=== PATIENT | female | born 1995 ===

== ENCOUNTER 2021-03-30 11:59 | Outpatient (CLI) | payer OTHER ==
[2021-03-30] MEDS ORDERED: LACTATED RINGERS 500 ML IV ONE (13:14)
[2021-03-30] MEDS ORDERED: LACTATED RINGERS 1,000 ML IV SCH (13:15)
[2021-03-30 14:26] LABS: Bilirubin,Urine NEG (Negative); Blood,Urine NEG (Negative); Color,Urine Yellow (Yellow); Mucus,Urine 1+ /HPF; Protein,Urine <15 mg/dL mg/dL (Negative); Urobilinogen,Urine < 2.0 mg/dL (<2.0)
--- NOTE | 2021-03-30 14:33 | Ultrasound Report ---
Biophysical profile Ultrasound HISTORY: labor. TECHNIQUE: Grayscale and color imaging performed. COMPARISON: None FINDINGS: The fetus received a score of 2 out of 2 for movement, posture/tone, and DIXIE. Fetus receive d a score of 0 out of 2 for breathing movement. Heart rate during the exam was 145 bpm. IMPRESSION: BPP score is 6 out of 8 as above. Signer Name: Andrei Parada MD Signed: 03/30/2021 2:28 PM Workstation Name: [id number]
--- NOTE | 2021-03-30 15:11 | Event Note ---
Date: 03/30/21 Nurse notified me of pt 31+ weeks with c/o LOF. ROM plus neg, FFN neg and BPP 8/10 and -2 for no breathing which is acceptable for this gestational age. Pt given IV fluid bolus. Urine neg. Pt to follow up in clinic in 1-2 days for repeat evaluation. Recommendation for Kick count instruction given and nurse to notify patient of all these instructions.
[2021-03-30 15:21] VITALS: BP 116/56
== END 2021-03-30 15:28 | disposition home or self-care (01) ==
LOC: TRG 11:59 → APU 12:00 → TRG 15:28
PROVIDERS: ATTEND Obstetrics & Gynecology
DX: O42.913 Preterm premature rupture of membranes, unspecified as to length of time between rupture and onset of labor, third trimester (principal); Z3A.31 31 weeks gestation of pregnancy
CPT/HCPCS: 36415; 59025; 76819; 81001; 82731; 84112; 87086; J7120; 96360; J3490

== ENCOUNTER 2021-05-28 07:07 | Inpatient (IN) | payer SELFPAY ==
[2021-05-28] MEDS: LACTATED RINGERS 1,000 ML IV SCH ×2 (10:50→15:00)
[2021-05-28] MEDS ORDERED: BICITRA ORAL LIQD 30ML PO SCH (10:56)
[2021-05-28] MEDS ORDERED: FAMOTIDINE 20 MG/2 ML INJ IV SCH (10:56)
[2021-05-28] MEDS ORDERED: METOCLOPRAMIDE 10 MG/2 ML INJ IV SCH (10:56)
[2021-05-28] MEDS ORDERED: OXYTOCIN DRIP 30 UNITS/500 ML BAG IV SCH ×2 (11:00→16:30)
[2021-05-28 11:09] LABS: Basophils % (Auto) 0.1 % (0.0-1.8); Eosinophils % (Auto) 0.3 % (0.0-4.3); Hematocrit 38.7 % (30.3-42.9); Hemoglobin 12.6 gm/dl (10.1-14.3); Lymphocytes # (Auto) 1.7 K/mm3 (1.2-5.4); Lymphocytes % (Auto) 22.1 % (13.4-35.0); Mean Corpuscular HGB Conc 33 % (30-34); Mean Corpuscular Volume 86 fl (79-97); Monocytes # (Auto) 0.4 K/mm3 (0.0-0.8); Monocytes % (Auto) 5.7 % (0.0-7.3)
[2021-05-28 11:10] LABS: Platelet Count 148 K/mm3 (140-440)
--- NOTE | 2021-05-28 11:13 | Anesthesia Day of Surgery ---
Anesthesia Day of Surgery - Day of Surgery Patient Examined: Yes Patient H&P Reviewed: Yes Patient is NPO: Yes
--- NOTE | 2021-05-28 11:15 | Anesthesia Consultation ---
Anesthesia Consult and Med Hx Date of service: 05/28/21 - Airway Anesthetic Teeth Evaluation: Good ROM Head & Neck: Adequate Mental/Hyoid Distance: Adequate Mallampati Class: Class II Intubation Access Assessment: Probably Good - Pulmonary Exam CTA: Yes - Cardiac Exam Cardiac Exam: RRR - Pre-Operative Health Status ASA Pre-Surgery Classification: ASA2 Proposed Anesthetic Plan: Epidural, Spinal - Pre-Anesthesia Comment Pre-Anesthesia Comments: csection - Pulmonary Hx Smoking: No Hx Asthma: No Hx Respiratory Symptoms: No SOB: No COPD: No Home Oxygen Therapy: No Hx Pneumonia: No Hx Sleep Apnea: No - Cardiovascular System Hx Hypertension: No Hx Coronary Artery Disease: No Hx Heart Attack/AMI: No Hx Angina: No Hx Percutaneous Transluminal Coronary Angioplasty (PTCA): No Hx Cardia Arrhythmia: No Hx Pacemaker: No Hx Internal Defibrillator: No Hx Valvular Heart Disease: No Hx Heart Murmur: No Hx Peripheral Vascular Disease: No - Central Nervous System Hx Neuromuscular Disorder: No Hx Seizures: No CVA: No Hx Back Pain: No Hx Psychiatric Problems: No - Gastrointestinal Hx Ulcer: No Hx Gastroesophageal Reflux Disease: No - Endocrine Hx Renal Disease: No Hx End Stage Renal Disease: No Hx Cirrhosis: No Hx Liver Disease: No Hx Insulin Dependent Diabetes: No Hx Non-Insulin Dependent Diabetes: No Hx Thyroid Disease: No Hx Hypothyroidism: No Hx Hyperthyroidism: No - Hematic Hx Anemia: No Hx Sickle Cell Disease: No - Other Systems Hx Alcohol Use: No Hx Substance Use: No Hx Cancer: No Hx Obesity: No
[2021-05-28] MEDS ORDERED: BUPIVACAINE /DEX-WATER 0.75% (2 ML) AMPULE INFILTRATI ONE (11:27)
[2021-05-28] MEDS ORDERED: ONDANSETRON 4 MG/2 ML INJ ONE (11:28)
[2021-05-28] MEDS ORDERED: ceFAZolin/Water 2 GM/20 ML 2 GM/20 ML SYRINGE IV ONE (12:36)
--- NOTE | 2021-05-28 12:48 | History and Physical Report ---
History of Present Illness Date of examination: 05/28/21 Date of admission: 05/28/21 11:17 Chief complaint: scheduled repeat section History of present illness: at 39.0wks by LMP c.w [facility]/S. care at [facility] and covered by [employer]. Pt admits to , Denies LOF, VB, contraction s or headache. Pt has no complaints Past History Past Medical History: no pertinent history Past Surgical History: section (x1) Social history: no significant social history - Obstetrical History Expected Date of Delivery: 06/04/21 Actual Gestation: 39 Week(s) 0 Day(s) : 2 Hx # Term Pregnancies: 1 Number of Living Children: 1 Medications and Allergies Allergies Allergy/AdvReac Type Severity Reaction Status Date / Time No Known Allergies Allergy Verified 03/30/21 13:05 Home Medications Medication Instructions Recorded Confirmed Last Taken Type No Known Home Medications [No 05/28/21 05/28/21 Unknown History Reported Home Medications] Active Meds: Active Medications Citric Acid/Sodium Citrate (Bicitra Oral Liqd 30ml) 30 ml PO ONCE DENISHA Last Admin: 05/28/21 11:42 Dose: 30 ml Famotidine (Famotidine 20 Mg/2 Ml Inj) 20 mg IV ONCE DENISHA Last Admin: 05/28/21 11:42 Dose: 20 mg Lactated Ringer's (Lactated Ringers) 1,000 mls @ 2,250 mls/hr IV PREOP DENISHA Stop: 05/29/21 12:27 Last Admin: 05/28/21 10:50 Dose: 2,250 mls/hr Oxytocin/Sodium Chloride (Pitocin/Ns 30 Unit/500ml) 30 units in 500 mls @ 0 mls/hr IV TITR DENISHA; Protocol Metoclopramide HCl (Metoclopramide 10 Mg/2 Ml Inj) 10 mg IV ONCE DENISHA Last Admin: 05/28/21 11:42 Dose: 10 mg Review of Systems All systems: negative (no complaints) - Vital Signs Vital signs: Vital Signs Temp 98.2 F 05/28/21 10:11 Temp Pulse Resp BP Pulse Ox 98.2 F 65 97 05/28/21 10:11 05/28/21 12:10 05/28/21 12:10 - Physical Exam Breasts: Positive: deferred Cardiovascular: Regular rate Lungs: Positive: Normal air movement Abdomen: Positive: soft Genitourinary (Female): Positive: normal external genitalia Vagina: Positive: normal moisture Uterus: Positive: enlarged (non-tender, gravid) - Obstetrical FHR: category 1 Uterine Contraction Monitor Mode: External Uterine Contraction Pattern: Absent Results Result Diagrams: 05/28/21 10:30 Abnormal lab results 05/28/21 Range/Units 10:30 Seg Neutrophils % 71.8 H (40.0-70.0) % All other labs normal. Assessment and Plan Term IUP here for scheduled repeat section 1. Admit to labor and delivery 2. Consents already obtained for repeat section 3. NICU and anesthesiology already notified 4. Geophysical Observer used to convey plan of care; all questions encouraged and answered
[2021-05-28] MEDS ORDERED: LACTATED RINGERS 1,000 ML ONE (13:14)
[2021-05-28] MEDS ORDERED: BUPIVACAINE/PF (0.25%) 2.5 MG/ML 30 ML VIAL INFILTRATI ONE ×2 (13:27)
--- NOTE | 2021-05-28 14:57 | Post Anesthesia Evaluation ---
- Post Anesthesia Evaluation Patient Participated: Yes Airway Patent: Yes Stable Respiratory Function: Yes Nausea/Vomiting: No Temp > 96.8F: Yes Pain Manageable: Yes Adequeate Hydration: Yes Anesthesia Complications: No Block Receding Appropriately: Yes Patient on Ventilator: No
--- NOTE | 2021-05-28 15:04 | Progress Note ---
Spinal Anesthesia Block - Spinal Anesthesia Block Start Time: 12:29 Stop Time: 12:36 Performed by:: ZOHAIB ROMO Procedure: atient is requesting epidural for labor pain. H&P and labs reviewed. Procedure explained, questions answered, consent obtained. Patient placed in sitting position with monitors applied. Timeout performed immediately before start of procedure. Prep/drape in usual sterile fashion. Skin localized 3 mL 1% lidocaine at L[3]-L[4] interspace. 17-gauge Terapeaktead epidural needle advanced to LATRICIA with saline at [7] cm. No blood/CSF noted via epidural needle. 25g spinal needle advanced into intrathecal space until clear, free flowing CSF noted. 1.4cc 0.75% hyperbaric bupivacaine injected into intrathecal space. Spinal needle removed and epidural catheter advanced to [10] cm. Negative aspiration for blood and CSF via catheter. Sterile dressing applied followed by tape reinforcement. Patient tolerated procedure well. No immediate complications noted.
--- NOTE | 2021-05-28 15:11 | Progress Note ---
Regional Anesthesia Block - Regional Anesthesia Block Start Time: 14:10 Stop Time: 14:15 Performed By:: ZOHAIB ROMO Procedure: Patient consented for TAP block for post surgical pain management. Patient identified, monitors placed, and time out performed. TAP identified bilaterally via ultrasound. Skin prepped bilaterally with [chlorhexidine] and [22g stimuplex] needle advanced to the TAP. [Marcaine 0.25% 30ml] injected under ultrasound guidance on the [left] side. [Marcaine 0.25% 30ml] injected under ultrasound guidance on the [right] side. Negative aspiration every 5mL, No change in heart rate or rhythm. Patient tolerated the procedure well. No apparent complications seen.
--- NOTE | 2021-05-28 15:46 | Procedure Note ---
OB Delivery Note - Delivery Date of Delivery: 05/28/21 Surgeon: RAIZA WOLFE Estimated blood loss: other (651cc by QBL per nurse) - Section Preop diagnosis: repeat Postop diagnosis: same section procedure: repeat low transverse Disposition: floor Complications: none Narrative: Date: 05/28/21 Surgeon: Raiza Wolfe MD Preop Dx: IUP at 39.0wks, previous section x1; Postop Dx: same and breech presentation Procedure : Repeat Low Transverse Anesthesia: combined spinal Intake: 1800cc Output: 500cc EBL: 651cc by QBL After the risks, benefits and alternatives of procedure discussed, patient signed consents and was taken to the operating room. Pt was given combined spinal anesthesia. After same was adequate, patient was prepped and draped in the usual sterile fashion. Acevedo catheter in place and draining clear urine. Pt was given prophylactic antibiotic per protocol and time out was done Pfannenstiel skin incision was made and taken sharply to the fascia and the incision extended using electrocautery. Superior edge of the fascia was grasped with morgan clamps and the rectus muscle using blunt dissection and also using electrocautery. Lower portion of the fascia also using electrocautery. Rectus muscle in the midline and Peritoneal cavity entered sharply and extended with good visualization of the bladder. Efraín retractor placed. The bladder flap was created sharply using metzenbaum scissors and adhesions to lower uterine segment . Lower uterine segment then entered transversely and amniotic sac entered using allys clamps. Uterine incision extended using bandage scissors. Infant noted to be complete breech and was delivered in usual fashion, bulb suctioned, cord clamped and baby handed to waiting pediatricians. Placenta then delivered manually and complete and uterine cavity cleared of all clots and debri. The uterus was not exteriorized and closed in 2 layers using 0-monocryl suture in a running locked fashion and then an additional layer of imbrication suture. Surgicel powder placed and Excellent hemostasis noted. The gutters were cleared of clots and debri and anterior peritoneum closed with scar and rectus muscle reapproximated using 0-vicryl suture in a running fashion. Rectus fascia closed with 0-vicryl suture from left to right in a running fashion and subcutaneous tissue copiously irrigated with normal saline and re-approximated using 3-0 vicryl suture. Excellent hemostasis remains. The skin was closed with 4-0 monocryl suture and steristrips placed with pressure dressing. Sponge, lap, instrument and needle counts x2 were normal. Patient tolerated the procedure well and was taken to recovery room stable. Findings: Viable male infant, APGARS 7/9 and weight 3420g. Normal uterus, tubes and ovaries. - Infant A at 1 minute: 7 at 5 minutes: 9 Infant Gender: Male (clear fluid, complete breech; wt 3420g)
[2021-05-28] MEDS ORDERED: IBUPROFEN 600 MG TAB PO PRN (16:07)
[2021-05-28] MEDS ORDERED: HYDROCORTISONE 25 MG RECTAL SUPP PR PRN (16:07)
[2021-05-28] MEDS ORDERED: LANOLIN/ZINC/DIMETHICONE (LANSINOH) 7 GM TP PRN (16:07)
[2021-05-28] MEDS ORDERED: MAGNESIUM HYDROXIDE (MOM) ORAL LIQD UDC PO PRN (16:07)
[2021-05-28] MEDS ORDERED: NALOXONE 0.4 MG/1 ML INJ IV PRN (16:30)
[2021-05-28] MEDS ORDERED: ACETAMINOPHEN 325 MG TAB PO PRN (16:30)
[2021-05-28] MEDS ORDERED: SIMETHICONE 80 MG CHEW TAB PO PRN (16:30)
[2021-05-28] MEDS ORDERED: ONDANSETRON 4 MG/2 ML INJ IV PRN (16:30)
[2021-05-28] MEDS ORDERED: WITCH HAZEL/ GLYCERIN PAD TP PRN (16:30)
[2021-05-28] MEDS ORDERED: PROMETHAZINE 25 MG RECT SUPP PR PRN (16:30)
[2021-05-28] MEDS: MORPHINE 4 MG/1 ML INJ IV PRN ×2 (16:34→21:59)
[2021-05-28] MEDS ORDERED: SENNOSIDES 8.6 MG TAB PO PRN (22:00)
[2021-05-29] MEDS: oxyCODONE /ACETAMINOPHEN 5-325MG TAB PO PRN ×2 (05:43→12:22)
[2021-05-29 06:00] LABS: Hematocrit 34.5 % (30.3-42.9); Hemoglobin 11.3 gm/dl (10.1-14.3)
[2021-05-29] MEDS ORDERED: ceFAZolin/NS 1 GM/50 ML 0 GM/0 ML BAG IV ONE (12:01)
[2021-05-29] MEDS: FERROUS SULFATE 325 MG TAB PO SCH (12:18)
[2021-05-29] MEDS: PRENATAL VIT27-FE FUMARATE-FOLIC ACID VIT TAB PO SCH (12:19)
--- NOTE | 2021-05-29 14:47 | Progress Note ---
Assessment and Plan POD#1 C/S and breech at delivery; mild fundal tenderness 1. Routine post op care 2. Remove dressing in am 3. Augmentin for early signs of endometritis All questions encouraged and answered Subjective Date of service: 05/29/21 Principal diagnosis: POD#1 repeat C/S Interval history: pt has voided without difficulty; passed flatus; breast feeding; pain controlled with meds. Objective - Constitutional Vitals: Vital Signs - 12hr 05/29/21 05/29/21 05/29/21 04:00 05:43 06:43 Temperature 98.7 F Pulse Rate 77 Respiratory 16 18 18 Rate Blood Pressure Blood Pressure 112/74 [Left] O2 Sat by Pulse Oximetry O2 Sat by Pulse Oximetry [ Throughout] 05/29/21 05/29/21 05/29/21 07:20 08:00 12:16 Temperature 97.9 F 97.7 F Pulse Rate 64 69 Respiratory 16 20 Rate Blood Pressure 108/63 108/69 Blood Pressure [Left] O2 Sat by Pulse 95 92 Oximetry O2 Sat by Pulse 98 Oximetry [ Throughout] General appearance: Present: no acute distress - Neck Neck: normal ROM - Respiratory Respiratory effort: normal - Breasts Breasts: deferred - Cardiovascular Rhythm: regular Extremities: No edema - Gastrointestinal General gastrointestinal: Present: soft - Genitourinary Female genitourinary: other (fundus firm, mild tenderness 1cm below umbilicus; lochia scant) - Labs CBC & Chem 7: 05/29/21 05:21 Medications & Allergies - Medications Allergies/Adverse Reactions: Allergies No Known Allergies Allergy (Verified 03/30/21 13:05) Home Medications: Home Medications Medication Instructions Recorded Confirmed Last Taken Type Ibuprofen [Motrin] 800 mg PO Q8HR PRN 21 Days #40 05/28/21 Unknown Rx tablet oxyCODONE /ACETAMINOPHEN [Percocet 1 tab PO Q4HR PRN 21 Days #30 tab 05/28/21 Unknown Rx 5/325] Active Medications: Generic Name Dose Route Start Last Admin Trade Name Freq PRN Reason Stop Dose Admin Acetaminophen 650 mg 05/28/21 16:30 Acetaminophen 325 Mg Tab PO Q4H PRN Fever >100.5/ESPINOZA Ferrous Sulfate 325 mg 05/29/21 10:00 05/29/21 12:18 Ferrous Sulfate 325 Mg Tab PO 325 mg QDAY DENISHA Administration Hydrocortisone Acetate 25 mg 05/28/21 16:07 Hydrocortisone 25 Mg Rectal Supp CO BID PRN Hemorrhoids Oxytocin/Sodium Chloride 30 units in 500 mls @ 0 mls/hr 05/28/21 11:00 Pitocin/Ns 30 Unit/500ml IV TITR [facility] Protocol As Directed Oxytocin/Sodium Chloride 30 units in 500 mls @ 40 mls/hr 05/28/21 16:30 Pitocin/Ns 30 Unit/500ml IV TITR [facility] Protocol Ibuprofen 600 mg 05/28/21 16:07 Ibuprofen 600 Mg Tab PO Q6H PRN Pain, Mild (1-3) Ibuprofen 800 mg 05/28/21 16:07 Ibuprofen 800 Mg Tab PO Q6H PRN Pain, Moderate (4-6) Magnesium Hydroxide 30 ml 05/28/21 16:07 Magnesium Hydroxide (Mom) Oral Liqd Udc PO QHS PRN Constip Unrelieved By Senna Morphine Sulfate 4 mg 05/28/21 16:30 05/28/21 21:59 Morphine 4 Mg/1 Ml Inj IV 4 mg Q4H PRN Administration Pain , Severe (7-10) Multi-Ingredient Ointment 1 applic 05/28/21 16:07 Lanolin/Zinc/Dimethicone (Lansinoh) 7 Gm TP PRN PRN dryness/cracking Multivitamins/Iron/Calcium 1 each 05/29/21 10:00 05/29/21 12:19 Ati24-Pw Fumarate-Folic Acid Vit Tab PO 1 each QDAY DENISHA Administration Naloxone HCl 0.1 mg 05/28/21 16:30 Naloxone 0.4 Mg/1 Ml Inj IV Q2MIN PRN Res Rate </= 8 or 02 SAT < 92% Ondansetron HCl 4 mg 05/28/21 16:30 Ondansetron 4 Mg/2 Ml Inj IV Q8H PRN Nausea And Vomiting Oxycodone/Acetaminophen 2 tab 05/28/21 16:30 05/29/21 12:22 Oxycodone /Acetaminophen 5-325mg Tab PO 2 tab Q4H PRN Administration Pain , Severe (7-10) Promethazine HCl 25 mg 05/28/21 16:30 Promethazine 25 Mg Rect Supp CO Q6H PRN N/V IF NPO AND NO IV ACCESS Senna 17.2 mg 05/28/21 22:00 Sennosides 8.6 Mg Tab PO QHS PRN Constipation Simethicone 80 mg 05/28/21 16:30 Simethicone 80 Mg Chew Tab PO Q6H PRN Gas pain Sodium Chloride 10 ml 05/28/21 16:30 Sodium Chloride 0.9% 10 Ml Flush Syringe IV PRN PRN flush Witch Lisa/Glycerin 1 each 05/28/21 16:30 Witch Lisa/ Glycerin Pad TP PRN PRN Hemorrhoids/cleansing/soothing
[2021-05-29] MEDS: IBUPROFEN 800 MG TAB PO PRN (16:08)
[2021-05-29] MEDS: AMOXICILLIN/K CLAV 875/125MG TAB PO SCH (16:21)
[2021-05-30] MEDS: IBUPROFEN 800 MG TAB PO PRN ×2 (03:02→09:56)
[2021-05-30] MEDS: AMOXICILLIN/K CLAV 875/125MG TAB PO SCH ×2 (04:52→11:21)
[2021-05-30] MEDS: FERROUS SULFATE 325 MG TAB PO SCH (09:56)
[2021-05-30] MEDS: PRENATAL VIT27-FE FUMARATE-FOLIC ACID VIT TAB PO SCH (09:56)
--- NOTE | 2021-05-30 12:27 | Progress Note ---
Assessment and Plan A: /postop day 2 S/P repeat LTCS. P: Discharge patient home today. Discussed with patient /postop discharge instructions and warning signs. Discussed with patient care of incision and activity restrictions. Advised patient to continue taking her vitamin and iron supplement at home. Advised patient to avoid int ercourse, lifting, housework, driving, and tub baths (patient may take showers). Advised patient to follow up at [facility] clinic in 1 week. Patient voiced understanding of all instructions. Subjective - Subjective Date of service: 05/30/21 Principal diagnosis: POD#2 repeat C/S Interval history: Patient requests discharge home today. Doing well; no complaints. Patient reports: appetite normal, voiding normally, pain well controlled, flatu s, ambulating normally, no dizzy ambulation, no nauseated : doing well Objective - Vital Signs Latest vital signs: Vital Signs Temp Pulse Resp BP BP Pulse Ox Pulse Ox 05/30/21 08:40 98 05/30/21 07:34 97.8 F 68 18 111/68 94 05/30/21 07:33 96 05/30/21 03:02 18 05/30/21 00:59 98.4 F 76 20 106/66 96 05/29/21 20:22 98 05/29/21 20:19 18 05/29/21 15:09 98.6 F 67 18 104/64 98 Intake and Output 05/29/21 05/30/21 05/30/21 23:59 07:59 15:59 Intake Total 240 600 240 Balance 240 600 240 Intake: Oral 240 240 240 Intake, Free Water 360 Other: Total, Intake Amount 240 240 240 # Voids Void 1 1 - Exam Cardiovascular: Present: Regular rate, No murmurs Lungs: Present: Clear to auscultation Abdomen: Present: normal appearance, soft, normal bowel sounds. Absent: distention, tenderness, guarding, rigidity Uterus: Present: normal, firm, fundal height below umbilicus. Absent: bogginess, tenderness Extremities: Present: tenderness. Absent: edema Incision: Present: dry, intact
--- NOTE | 2021-05-30 12:30 | Discharge Summary ---
Providers - Providers Date of Admission: 05/28/21 11:17 Date of discharge: 05/30/21 Attending physician: MELBA WOLFE Primary care physician: MELBA WOLFE Hospitalization Reason for admission: section Delivery: Procedure: repeat low transverse Incision: normal, dry, intact Other procedures: none complications: none Discharge diagnosis: IUP at term delivered [place] baby: male Pertinent studies: Labs Hospital course: Stable hospital course Condition at discharge: Good Disposition: 01 HOME / SELF CARE / HOMELESS - Discharge Diagnoses (1) Term delivered Status: Acute Plan - Discharge Medications Prescriptions: Ibuprofen [Motrin] 800 mg PO Q8HR PRN 21 Days #40 tablet PRN Reason: Pain, Moderate (4-6) oxyCODONE /ACETAMINOPHEN [Percocet 5/325] 1 tab PO Q4HR PRN 21 Days #30 tab PRN Reason: Pain , Severe (7-10) - Provider Discharge Summary Activity: routine, no sex for 6 weeks, no heavy lifting 4 weeks, no strenuous exercise Diet: routine Instructions: routine Additional instructions: Continue taking your vitamin and iron supplement at home. Follow up at [facility] clinic in 1 week. Call your doctor immediately for: * Fever > 100.5 * Heavy vaginal bleeding ( >1 pad per hour) * Severe persistent headache * Shortness of breath * Reddened, hot, painful area to leg or breast * Drainage or odor from incision. * Keep incision clean and dry at all times and follow doctor's instructions regarding bathing/showering - Follow up plan Follow up: [facility] [Referring] - 7 Days
[2021-05-30 15:39] VITALS: BP 111/71
== END 2021-05-30 17:35 | disposition home or self-care (01) | DRG 788 ==
LOC: TRG 07:07 → APU 10:46 → TRG 11:16 → APU 11:17 → OB 15:45
PROVIDERS: ADMIT Obstetrics & Gynecology; ATTEND Obstetrics & Gynecology
PROC: 10D00Z1 Extraction of Products of Conception, Low, Open Approach (ICD-10-PCS; principal; 2021-05-28)
DX: O34.211 Maternal care for low transverse scar from previous cesarean delivery (principal); O32.1XX0 Maternal care for breech presentation, not applicable or unspecified; Z20.822 Contact with and (suspected) exposure to COVID-19; Z3A.39 39 weeks gestation of pregnancy; Z37.0 Single live birth
CPT/HCPCS: 36415; 85014; 85018; 85025; 86592; 86850; 86900; 86901; G0378; J0630; J3490; J7121; J0690; J2270; J2405; J2765; J7120; U0003